=== PATIENT | female | born 1995 | race Caucasian/White ===

== ENCOUNTER 2017-03-25 08:01 | Emergency (ER) | payer OTHER ==
[2017-03-25 09:06] LABS: HEMOGLOBIN 14.5 gm/dl (12.3-15.3); RED BLOOD COUNT 4.8 M/UL (4.00-5.10); WHITE BLOOD COUNT 11.7 K/UL (4.5-11.0)
[2017-03-25 09:22] LABS: BUN/CREATININE RATIO 17 (0-10)
== END 2017-03-25 10:42 | disposition home or self-care (01) ==
LOC: ER1 08:01
PROVIDERS: Physician Assistant
DX: R10.32 Left lower quadrant pain (principal); R11.0 Nausea; R68.83 Chills (without fever); R63.0 Anorexia; F17.210 Nicotine dependence, cigarettes, uncomplicated; Z88.0 Allergy status to penicillin
CPT/HCPCS: 36415; 76830; 80053; 81001; 84703; 85025; 87086; 87210; 99284

== ENCOUNTER → 2021-03-27 | Outpatient (CLI) | payer OTHER | LOC: EXRD 15:28 | DX: Z34.90 Encounter for supervision of normal pregnancy, unspecified, unspecified trimester (principal); M79.661 Pain in right lower leg | CPT/HCPCS: 93971 ==

== ENCOUNTER 2021-07-23 22:47 | Outpatient (CLI) | payer OTHER | END 2021-07-24 01:49 | disposition home or self-care (01) | LOC: GENOP 22:47 | DX: O99.891 Other specified diseases and conditions complicating pregnancy (principal); R10.9 Unspecified abdominal pain; M54.9 Dorsalgia, unspecified; O99.342 Other mental disorders complicating pregnancy, second trimester; F41.9 Anxiety disorder, unspecified; F32.9 Major depressive disorder, single episode, unspecified; F60.3 Borderline personality disorder; O99.332 Smoking (tobacco) complicating pregnancy, second trimester; F17.200 Nicotine dependence, unspecified, uncomplicated; Z3A.27 27 weeks gestation of pregnancy | CPT/HCPCS: 81001; 96360 ==